=== PATIENT | female | born 1935 | race Caucasian/White ===

== ENCOUNTER 2019-05-03 14:51 | Emergency (ER) | payer OTHER, MEDICARE ==
[~2019-05-03] VITALS: Ht 162.6 cm; Wt 64.6 kg
--- NOTE | 2019-05-03 15:09 | PHYS DOC ---
Past History Past Medical History: No Pertinent History Adult General Chief Complaint Chief Complaint: LACERATION/AVULSION HPI HPI Patient is a healthy 83-year-old female who presents to the emergency department for evaluation. She states she tripped just prior to arrival and fell striking her head forehead on a fire hydrant, where she sustained a laceration on her left forehead. She did not have any loss of consciousness, denies any other areas of pain. She denies any neck pain, back pain, or extremity pain or injury. She does not know when her last tetanus was. There are no alleviating or exacerbating factors to her symptoms otherwise. Review of Systems Review of Systems Constitutional: Denies fever or chills [] Eyes: Denies change in visual acuity, redness, or eye pain [] : Denies dysuria or hematuria [] Musculoskeletal: Denies back pain or joint pain , or any other painful areas.[] Integument: Denies rash or skin lesions [] Neurologic: Denies headache, focal weakness or sensory changes [] Physical Exam Physical Exam PHYSICAL EXAM: CONSTITUTIONAL: Well developed, well nourished HEAD: normocephalic, there is a 4 cm intradermal, superficial laceration on the left forehead, with a soft tissue contusion surrounding. The remainder of the cranium is nontender and atraumatic. EENT: PERRL, EOMI. Conjunctivae normal color, sclerae non-icteric; moist mucous membranes. NECK: Supple, non-tender; no meningismus.There is full, painless range of motion of the cervical spine, without any focal bony midline tenderness to palpation. LUNGS: Lungs CTA, breathing even and unlabored. Normal air movement. HEART: Regular rate and rhythm, no murmur CHEST: No deformity; non-tender ABDOMEN: The abdomen is soft, and non-tender, no masses or bruits. EXTREM: Normal ROM; no deformity, no calf tenderness. Normal pulses palpable in all extremities. There is no pedal edema. Extremities are atraumatic. SKIN: No rash; no diaphoresis NEURO: Alert; normal speech and cognition; CN's grossly intact; strength grossly intact without focal deficit. BACK: No CVA TTP.There is no bony tenderness to palpation of the thoracic or lumbar spine. EKG EKG [] Radiology/Procedures Radiology/Procedures PROCEDURE: CT HEAD WO CONTRAST CT HEAD WO CONTRAST Date: 05/03/2019 3:03 PM Clinical Indication: Fall, pain Comparison: None. Technique: 5 mm axial tomographic images were obtained of the head without contrast. These were viewed on brain and bone windows. One or more of the following dose reduction techniques were utilized: Automated exposure control (AEC), Adjustment of mA and/or kV according to patient size, Use of iterative reconstruction technique such as ASiR, CT scan done according to ALARA and image gently/image wisely Findings: Mild generalized cerebral and cerebellar volume loss. Mild nonspecific periventricular hypoattenuation, most commonly seen with chronic small vessel ischemic disease. Calcified atherosclerosis of the bilateral cavernous and paraclinoid internal carotid arteries and intracranial vertebral arteries. No intra- or extra-axial mass or fluid collection. No acute hemorrhage. The ventricles are normal in size, shape, and morphology. The daniels-white matter junction is normal. The subarachnoid cisterns are patent. The visualized paranasal sinuses are normal. The visualized portions of the orbits and globes are normal. The mastoid air cells are clear. The plasterer tender topogram shows no lytic lesion or fracture. Left frontal scalp hematoma. Impression: No acute intracranial process. Left frontal scalp hematoma. Mild cerebral volume loss. Mild chronic small vessel ischemic disease. Course & Med Decision Making Course & Med Decision Making Patient remains stable. I discussed test results, the need for close follow-up, and return precautions. PROCEDURE NOTE: Laceration repair: The 4 centimeter forehead laceration was irrigated with normal saline, and closed with Dermabond. Dragon Disclaimer Dragon Disclaimer This electronic medical record was generated, in whole or in part, using a voice recognition dictation system. Departure Departure: Impression: Primary Impression: Forehead laceration Additional Impression: Closed head injury Disposition: HOME, SELF-CARE Condition: STABLE Referrals: CHAYO VELASQUEZ MD (PCP) Patient Instructions: Head Injury, Adult, Laceration Care, Adult, Tissue Adhesive Wound Care Problem Qualifiers MARIETTA WISE MD May 03, 2019 15:09
--- NOTE | 2019-05-03 15:32 | RAD ---
CT HEAD WO CONTRAST Date: 05/03/2019 3:03 PM Clinical Indication: Fall, pain Comparison: None. Technique: 5 mm axial tomographic images were obtained of the head without contrast. These were viewed on brain and bone windows. One or more of the following dose reduction techniques were utilized: Automated exposure control (AEC), Adjustment of mA and/or kV according to patient size, Use of iterative reconstruction technique such as ASiR, CT scan done according to ALARA and image gently/image wisely Findings: Mild generalized cerebral and cerebellar volume loss. Mild nonspecific periventricular hypoattenuation, most commonly seen with chronic small vessel ischemic disease. Calcified atherosclerosis of the bilateral cavernous and paraclinoid internal carotid arteries and intracranial vertebral arteries. No intra- or extra-axial mass or fluid collection. No acute hemorrhage. The ventricles are normal in size, shape, and morphology. The daniels-white matter junction is normal. The subarachnoid cisterns are patent. The visualized paranasal sinuses are normal. The visualized portions of the orbits and globes are normal. The mastoid air cells are clear. The chainstitch pants outseamer topogram shows no lytic lesion or fracture. Left frontal scalp hematoma. Impression: No acute intracranial process. Left frontal scalp hematoma. Mild cerebral volume loss. Mild chronic small vessel ischemic disease. Electronically signed by: Izaiah Leo MD (05/03/2019 3:29 PM) [id number]
[2019-05-03 15:48] VITALS: BP 187/84
[2019-05-03] MEDS ORDERED: DIPHTH,PERTUSS(ACELL),TET TOX 0.5 ML DISP.SYRIN. VAX IM ONE (16:00)
== END 2019-05-03 16:00 | disposition home or self-care (01) ==
LOC: ER 14:51
DX: S01.81XA Laceration without foreign body of other part of head, initial encounter (principal); W01.198A Fall on same level from slipping, tripping and stumbling with subsequent striking against other object, initial encounter; Y93.89 Activity, other specified; Y92.89 Other specified places as the place of occurrence of the external cause; Y99.8 Other external cause status
CPT/HCPCS: 12013; 70450; 90471; 90715; 99284-25

== ENCOUNTER → 2020-09-19 | Outpatient (CLI) | payer OTHER ==
--- NOTE | 2020-09-19 17:11 | RAD ---
EXAM: CT head without contrast INDICATION: Cognitive impairment COMPARISON: CT head 05/03/2019 TECHNIQUE: Axial CT imaging through the head without intravenous contrast. One or more of the following individualized dose reduction techniques were utilized for this examinat ion: 1. Automated exposure control 2. Adjustment of the mA and/or kV according to patient size 3. Use of iterative reconstruction technique. FINDINGS: No intracranial hemorrhage, acute infarct, or mass lesion. Ventricles and sulci are mildly enlarged. There is mild periventricular white matter hypoattenuation. The calvarium is intact. The visualized s inuses and mastoid air cells are clear. Globes and orbits are intact. IMPRESSION: 1. No acute intracranial abnormality. 2. Unchanged mild atrophy and mild chronic microvascular ischemic changes. Electronically signed by: Trish Triplett MD (09/19/2020 5:08 PM) [id number]
== END ==
LOC: CT 15:25
PROVIDERS: ATTEND Family Medicine
DX: I67.82 Cerebral ischemia (principal); G31.9 Degenerative disease of nervous system, unspecified; I51.7 Cardiomegaly; R41.89 Other symptoms and signs involving cognitive functions and awareness
CPT/HCPCS: 70450

== ENCOUNTER → 2021-07-05 | Outpatient (CLI) | payer OTHER ==
--- NOTE | 2021-07-05 16:55 | RAD ---
MR#: [id number] Date of Study: 07/05/2021 Ordering Physician: TAYLA JARAMILLO, Referring Physician: TAYLA JARAMILLO, Tech: Kennedi Braun RVT,MAMADOU APPROVED REPORT Patient Location: OUT-PATIENT Indications Uncontrolled HTN Acute Renal Failure Grayscale images of the bilateral kidneys demonstrate mild medical renal disease. There are 2 large cysts on the left kidney with the largest measuring 5.6 x 5.8 x 5.0 cm. These appear to be simple cy sts. The bilateral proximal, mid and distal renal artery velocities are within normal limits with normal b ilateral renal to aortic ratios. Normal bilateral resistive indices. Renal Artery Doppler Right Renal Artery Left Renal Arter y Proximal 103.6/30.0 cm/secProximal 88.0/23.6 cm/sec Mid 127.3/36.4 cm/secMid 144.5/32.7 cm/sec Distal 109.8/26.2 cm/secDistal 107.3/30.0 cm/sec Renal/Aorta Ratio 1.80Renal/Aorta Ratio 2.10 Prox. Resistive Index 0.7Prox. Resistive Index 0.7 Mid Resistive Index 0.7Mid Resistive Index 0.7 Distal Resistive Index 0.7Distal Resistive Index 0.7 Renal Measurements RightLeft Kidney Felhlp02.2 cm cmKidney Kwkkzz00.5 cm cm Right Additional FindingsLeft Additional Findings Aortic Doppler VelocityWaveform Aorta Mid. 70.0 cm/sec Critical Notification Critical Value: No <Conclusion> 1. No significant bilateral renal artery stenosis 2. Large left-sided renal cyst measuring approximately 5.6 x 5.8 x 5 cm, review of prior CT scan fro 2006 demonstrates a single left-sided cyst measuring 1 cm x 1 cm. Signed by : Gautam Bray, Electronically Approved : 07/05/2021 16:55:26
== END ==
LOC: US 07:56
PROVIDERS: ATTEND Internal Medicine Cardiovascular Disease
DX: N28.1 Cyst of kidney, acquired (principal); I10 Essential (primary) hypertension
CPT/HCPCS: 76770; 82088; 84244